=== PATIENT | female | born 1995 | race Caucasian/White ===

== ENCOUNTER 2016-08-15 16:43 | Emergency (ER) | payer MEDICAID, OTHER ==
[~2016-08-15] VITALS: Ht 149.9 cm; Wt 46.7 kg
[2016-08-15 17:26] VITALS: BP 88/72
--- NOTE | 2016-08-15 17:45 | NUR ---
PT PRESENTS TO ER W/C/O FEVER SINCE THIS. TEMPERATURE UPON ARRIVAL TO ER 100.4. PT IS 21 WEEKS ; DENIES N/V/D; SKIN IS PINK/WARM/DRY; AAOX4 WITH EVEN AND STEADY GAIT; LUNGS CLEAR BL; HR EVEN AND REGULAR; PT DENIES ANY FEVER, CP, SOB, OR COUGH AT THIS TIME; PATIENT STATES PAIN OF 0/10 AT THIS TIME; VSS; PATIENT POSITIONED FOR COMFORT; HOB ELEVATED; BEDRAILS UP X2; BED DOWN. ER MD MADE AWARE OF PT STATUS.
--- NOTE | 2016-08-15 18:12 | NUR ---
AAO, COOPERATIVE PATIENT TAKEN TO OB 5A FOR FURTHER EVAL VIA WHEEL CHAIR BY MICHELLE BOLES
[2016-08-15 18:56] VITALS: BP 99/54
--- NOTE | 2016-08-15 20:25 | NUR ---
Patient was brought back from L&D and taken to bed 04.
--- NOTE | 2016-08-15 20:53 | NUR ---
Dr. Flor evaluating patient at bedside.
[2016-08-15] MEDS ORDERED: NACL 0.9% 1,000 ML IV ONE ×3 (21:05→23:35)
[2016-08-15] MEDS ORDERED: ACETAMINOPHEN EXTRA STRENGTH 500 MG TAB PO ONE (21:05)
[2016-08-15] MEDS ORDERED: POTASSIUM CHLORIDE 10 MEQ TABER PO ONE (22:00)
[2016-08-16] MEDS ORDERED: PENICILLIN G BENZATHINE L-A 1.2 MU/2 ML SYR IM ONE (01:05)
--- NOTE | 2016-08-16 01:10 | NUR ---
ADMINISTER IM INJECTION ORDERED WITH NAEEM HERNANDEZ.
[2016-08-16 01:35] VITALS: BP 100/56
--- NOTE | 2016-08-16 01:35 | NUR ---
Patient discharged with v/s stable. Written and verbal after care instructions given and explained. Patient alert, oriented and verbalized understanding of instructions. Ambulatory with steady gait. All questions addressed prior to discharge. ID band removed. Patient advised to follow up with PMD. Rx of TYLENOL 500MG PO, ZOFRAN 4MG ODT PO given. Patient educated on indication of medication including possible reaction and side effects. Opportunity to ask questions provided and answered.
== END 2016-08-16 01:35 | disposition home or self-care (01) ==
LOC: MED 16:43 → EDSTATUS 18:16 → MLD 18:36 → UNDOADMOB 18:36 → EDSTATUS 20:22 → MED 08-16 01:35
DX: O26.892 Other specified pregnancy related conditions, second trimester (principal); J02.9 Acute pharyngitis, unspecified; R07.89 Other chest pain; Z90.89 Acquired absence of other organs; Z3A.20 20 weeks gestation of pregnancy
CPT/HCPCS: 36415; 59025; 76805; 80053; 81001; 81025; 83605; 85025; 87081; 87804; 96360; 96361; 96372; 99285; J0561; J7030; Q0092

== ENCOUNTER 2017-08-27 09:31 | Emergency (ER) | payer MEDICAID, OTHER ==
[~2017-08-27] VITALS: Ht 139.7 cm; Wt 49.0 kg
[2017-08-27 10:31] VITALS: BP 137/72
--- NOTE | 2017-08-27 10:36 | NUR ---
PATIENT TO LOBBY. NO AVAIL. BED AT THIS TIME. NO DISTRESS
--- NOTE | 2017-08-27 12:38 | NUR ---
PATIENT TAKEN TO CHAIR OUTSIDE TRIAGE. SEEN AND EXAMINED BY DR. FOSTER
[2017-08-27 12:46] VITALS: BP 93/57
== END 2017-08-27 12:46 | disposition home or self-care (01) ==
LOC: MED 09:31
DX: O26.891 Other specified pregnancy related conditions, first trimester (principal); L03.317 Cellulitis of buttock; Z3A.01 Less than 8 weeks gestation of pregnancy
CPT/HCPCS: 99283

== ENCOUNTER 2017-12-25 13:53 | Emergency (ER) | payer OTHER ==
[~2017-12-25] VITALS: Ht 149.9 cm; Wt 48.1 kg
[2017-12-25 13:55] VITALS: BP 104/59
--- NOTE | 2017-12-25 14:03 | NUR ---
PT AMBULATES TO BED 3 WITH STEADY GAIT
--- NOTE | 2017-12-25 14:20 | NUR ---
22F BIB SELF C/O PAINFUL URINATION FOR 1 WEEK. REPORTS SHE HAD AN EPISIOTOMY DURING HER LAST 1 YEAR AGO, THINKS THE AREA IS WHATS CAUSING HER THE PAIN WHEN SHE URINATES. PT IS 5 MONTHS WITH NO PREVIOUS CARE D/T "NOT SURE OF KEEPING IT". PT STS APPOINTED WITH [facility] TOMORROW TO DISCUSS OPTIONS. PT DENIES ANY ABDOMINAL PAIN, N/V/D, OR VAGINAL BLEEDING. PT IS AOX4 TO PERSON,PLACE,DATE, AND SITUATION. RR ARE EVEN AND UNLABORED. PT CHANGED INTO GOWN. AWAITING ER MD [place]. NAD. WILL CONTINUE TO MONITOR.
--- NOTE | 2017-12-25 14:20 | NUR ---
LMP 07/27/17. .
--- NOTE | 2017-12-25 14:31 | NUR ---
JABIER ESCOBAR BY BEDSIDE EXAMINING PT
--- NOTE | 2017-12-25 14:42 | NUR ---
JABIER ESCOBAR STS WILL ORDER ULTRASOUND. CANCELLED FHTs.
--- NOTE | 2017-12-25 15:21 | NUR ---
ultrasound by bedside
[2017-12-25 17:15] VITALS: BP 100/61
--- NOTE | 2017-12-25 17:15 | NUR ---
Patient discharged with v/s stable. Written and verbal after care instructions given and explained. Patient alert, oriented and verbalized understanding of instructions. Ambulatory with steady gait. All questions addressed prior to discharge. ID band removed. Patient advised to follow up with PMD. Rx of and Cephalexin given. Patient educated on indication of medication including possible reaction and side effects. Opportunity to ask questions provided and answered.
== END 2017-12-25 17:15 | disposition home or self-care (01) ==
LOC: MED 13:53
DX: O23.42 Unspecified infection of urinary tract in pregnancy, second trimester (principal); Z3A.24 24 weeks gestation of pregnancy
CPT/HCPCS: 76805; 81002; 81025; 99284; Q0092

== ENCOUNTER 2018-02-19 14:18 | Emergency (ER) | payer OTHER ==
[~2018-02-19] VITALS: Ht 149.9 cm; Wt 52.6 kg
--- NOTE | 2018-02-19 14:20 | NUR ---
Marya quinonez in [facility] - 02/19/18 at 1501 by TROY PT BIBA TO ER BED 06
--- NOTE | 2018-02-19 14:20 | NUR ---
PT AMBULATED TO ER BED 06
[2018-02-19 14:25] VITALS: BP 112/72
--- NOTE | 2018-02-19 14:35 | NUR ---
PT. CAME INTO THE ED DUE TO A L EYEBROW PIMPLE. PT. STATES " I WENT OT THE URGENT CARE BECAUSE THIS PIMPLE GOT REALLY BIG AND IT HURTS WHEN I TOUCH IT AND THEY TOLD ME TO COME HERE". PT. HAS 8/10 PAIN WHEN TOUCHING IT BUT NO PAIN WHEN LEFT ALONE. PT. IS AWAKE AND ALERT. NO N/V/D. PT. DENIES ANY FEVERS. ER MD NOTIFIED. WILL CONTINUE TO MONITOR.
[2018-02-19 14:55] VITALS: BP 112/72
--- NOTE | 2018-02-19 14:55 | NUR ---
Patient discharged with v/s stable. Written and verbal after care instructions given and explained. Patient verbalized understanding. Ambulatory with steady gait. All questions addressed prior to discharge. Advised to follow up with PMD.
== END 2018-02-19 14:55 | disposition home or self-care (01) ==
LOC: MED 14:18
DX: O26.892 Other specified pregnancy related conditions, second trimester (principal); L02.01 Cutaneous abscess of face; Z90.49 Acquired absence of other specified parts of digestive tract
CPT/HCPCS: 99281

== ENCOUNTER 2022-02-21 21:58 | Emergency (ER) | payer OTHER ==
[~2022-02-21] VITALS: Ht 149.9 cm; Wt 61.2 kg
[2022-02-21 22:15] VITALS: BP 102/71
[2022-02-21] MEDS ORDERED: DEXAMETHASONE 4 MG/ML VIAL PO ONE (22:55)
--- NOTE | 2022-02-21 23:05 | NUR ---
PT TAKEN TO BED 7
--- NOTE | 2022-02-21 23:10 | NUR ---
COVID-19, Strep and culture swabs collected and sent to lab.
--- NOTE | 2022-02-21 23:56 | NUR ---
Dr. Esposito examining patient.
[2022-02-22] MEDS ORDERED: LIDO100S PO (00:19)
[2022-02-22 00:26] VITALS: BP 110/78
--- NOTE | 2022-02-22 00:26 | NUR ---
Patient discharged with v/s stable. Written and verbal after care instructions given and explained. Patient alert, oriented and verbalized understanding of instructions. Ambulatory with steady gait. All questions addressed prior to discharge. ID band removed. Patient advised to follow up with PMD. Rx of LIDOCAINE HCL given. Patient educated on indication of medication including possible reaction and side effects. Opportunity to ask questions provided and answered.
== END 2022-02-22 00:26 | disposition home or self-care (01) ==
LOC: MED 21:58
DX: J02.9 Acute pharyngitis, unspecified (principal); Z20.822 Contact with and (suspected) exposure to COVID-19; Z90.49 Acquired absence of other specified parts of digestive tract; Z79.899 Other long term (current) drug therapy
CPT/HCPCS: 87081; 87426; 99283; J1100

== ENCOUNTER 2022-02-23 22:52 | Emergency (ER) | payer OTHER ==
[~2022-02-23] VITALS: Ht 152.4 cm; Wt 59.0 kg
[~2022-02-23 22:52] MED LIST: LIDO100S PO
[2022-02-23 23:03] VITALS: BP 125/72
[2022-02-24] MEDS ORDERED: LIDOCAINE MPF 1% 10 MG/ML VIAL INJ ONE (00:55)
[2022-02-24] MEDS ORDERED: BACITRACIN OINT 500 UNITS/GM PKT TP ONE (01:10)
[2022-02-24] MEDS ORDERED: NAPR-54 PO (01:26)
== END 2022-02-24 01:25 | disposition home or self-care (01) ==
LOC: MED 22:52
DX: L02.511 Cutaneous abscess of right hand (principal); F14.90 Cocaine use, unspecified, uncomplicated
CPT/HCPCS: 11730; 99284; J2001

== ENCOUNTER 2023-08-02 00:10 | Emergency (ER) | payer MEDICAID, OTHER ==
[~2023-08-02] VITALS: Ht 149.9 cm; Wt 65.8 kg
[~2023-08-02 00:10] MED LIST changes: +NAPR-54 PO
[2023-08-02 00:25] VITALS: BP 113/71; PULSE 93; RESP 18; TEMP 98.2; O2SAT 99
[2023-08-02 00:46] LABS: APPEARANCE,URINE SL CLOUDY (CLEAR); BILIRUBIN,URINE NEGATIVE (NEGATIVE); BLOOD, URINE TRACE-I (NEGATIVE); COLOR,URINE YELLOW (YELLOW); LEUKOCYTE ESTERASE ,URINE 1+ (NEGATIVE); NITRITE, URINE NEGATIVE (NEGATIVE); PROTEIN,URINE NEGATIVE (NEGATIVE); UGLUCOSE NEGATIVE (NEGATIVE)
[2023-08-02 00:52] LABS: BACTERIA,URINE 10-30 (MOD) /HPF (None Seen); MUCUS,URINE 1+ /LPF (None Seen); SQUAMOUS EPITHELIAL CELL,UR 0-3 (FEW) /LPF (0-3 (FEW))
[2023-08-02 01:17] LABS: BASOPHILS # (AUTO) 0.1 K/uL (0.00-0.22); BASOPHILS % (AUTO) 0.8 % (0.0-2.0); EOSINOPHILS # (AUTO) 0.3 K/uL (0-0.4); EOSINOPHILS % (AUTO) 3.2 % (0.0-4.0); HEMATOCRIT 35.8 % (36-48); HEMOGLOBIN 12.3 g/dL (12.0-16.0); LYMPHOCYTES # (AUTO) 2.4 K/uL (2.5-16.5); LYMPHOCYTES % (AUTO) 30.5 % (20.5-51.1); MEAN CORPUSCULAR HEMOGLOBIN 29 pg (27-31); MEAN CORPUSCULAR HGB CONC 34 g/dL (33-37); MEAN CORPUSCULAR VOLUME 84.8 fL (80-94); MONOCYTES # (AUTO) 0.8 K/uL (0.8-1.0); MONOCYTES % (AUTO) 9.6 % (1.7-9.3); NEUTROPHILS # (AUTO) 4.4 K/uL (1.8-7.7); NEUTROPHILS % (AUTO) 55.9 % (42.2-75.2); PLATELET COUNT (AUTO) 197 K/uL (140-450); RED BLOOD CELL COUNT(AUTO) 4.23 MIL/uL (4.20-5.40); RED CELL DISTRIBUTION WIDTH 13.7 % (11.6-13.7); WHITE BLOOD COUNT (AUTO) 7.9 K/uL (4.8-10.8)
[2023-08-02 01:24] LABS: ANION GAP 12.4 (8-16); CALCIUM 8.7 mg/dL (8.5-10.1); CARBON DIOXIDE 27.3 mmol/L (21-32); CREATININE 0.7 mg/dL (0.6-1.3); POTASSIUM 3.7 mmol/L (3.5-5.1)
[2023-08-02 01:30] LABS: ALBUMIN 3.4 g/dL (3.4-5.0); BILIRUBIN,DIRECT 0.1 mg/dL (0.0-0.3); TOTAL BILIRUBIN 0.4 mg/dL (0.0-1.0); TOTAL PROTEIN, SERUM 8.5 g/dL (6.4-8.2)
[2023-08-02 01:50] LABS: FLU A ANTIGEN negative (NEGATIVE); FLU B ANTIGEN NEGATIVE (NEGATIVE)
[2023-08-02] MEDS ORDERED: ONDA-188 PO (02:10)
[2023-08-02] MEDS ORDERED: ONDANSETRON 4 MG ODT ONE (02:13)
[2023-08-02] MEDS ORDERED: ONDANSETRON 4 MG ODT PO ONE (02:15)
[2023-08-02 02:17] VITALS: BP 113/71; PULSE 93; RESP 18; TEMP 98.2; O2SAT 99
== END 2023-08-02 02:17 | disposition home or self-care (01) ==
LOC: MED 00:10
DX: R11.2 Nausea with vomiting, unspecified (principal); Z20.822 Contact with and (suspected) exposure to COVID-19; Z79.899 Other long term (current) drug therapy; Z79.1 Long term (current) use of non-steroidal anti-inflammatories (NSAID)
CPT/HCPCS: 36415; 80048; 80076; 81001; 81025; 83690; 85025; 87086; 87426; 87804; 99283; Q0162

== ENCOUNTER 2023-09-25 00:35 | Emergency (ER) | payer MEDICAID ==
[~2023-09-25] VITALS: Ht 149.9 cm; Wt 66.7 kg
[~2023-09-25 00:35] MED LIST changes: +ONDA-188 PO
[2023-09-25 00:37] VITALS: BP 110/75; PULSE 90; RESP 18; TEMP 98; O2SAT 100
[2023-09-25 01:02] VITALS: BP 103/65; PULSE 97; RESP 16; O2SAT 100
[2023-09-25 01:37] LABS: APPEARANCE,URINE CLEAR (CLEAR); BILIRUBIN,URINE NEGATIVE (NEGATIVE); BLOOD, URINE NEGATIVE (NEGATIVE); COLOR,URINE YELLOW (YELLOW); LEUKOCYTE ESTERASE ,URINE TRACE (NEGATIVE); NITRITE, URINE NEGATIVE (NEGATIVE); PROTEIN,URINE NEGATIVE (NEGATIVE); UGLUCOSE NEGATIVE (NEGATIVE)
[2023-09-25 01:47] LABS: BASOPHILS # (AUTO) 0.1 K/uL (0.00-0.22); BASOPHILS % (AUTO) 0.6 % (0.0-2.0); EOSINOPHILS # (AUTO) 0.2 K/uL (0-0.4); EOSINOPHILS % (AUTO) 2.6 % (0.0-4.0); HEMATOCRIT 33.8 % (36-48); HEMOGLOBIN 11.6 g/dL (12.0-16.0); LYMPHOCYTES % (AUTO) 21.5 % (20.5-51.1); MEAN CORPUSCULAR HEMOGLOBIN 29 pg (27-31); MEAN CORPUSCULAR HGB CONC 34 g/dL (33-37); MEAN CORPUSCULAR VOLUME 84.7 fL (80-94); MONOCYTES # (AUTO) 0.9 K/uL (0.8-1.0); MONOCYTES % (AUTO) 9.5 % (1.7-9.3); NEUTROPHILS % (AUTO) 65.8 % (42.2-75.2); PLATELET COUNT (AUTO) 188 K/uL (140-450); RED BLOOD CELL COUNT(AUTO) 3.99 MIL/uL (4.20-5.40); RED CELL DISTRIBUTION WIDTH 13.7 % (11.6-13.7); WHITE BLOOD COUNT (AUTO) 9.2 K/uL (4.8-10.8)
[2023-09-25 01:52] LABS: ALBUMIN 3.5 g/dL (3.4-5.0); BILIRUBIN,DIRECT 0.1 mg/dL (0.0-0.3); TOTAL BILIRUBIN 0.3 mg/dL (0.0-1.0); TOTAL PROTEIN, SERUM 7.2 g/dL (6.4-8.2)
[2023-09-25 01:58] LABS: BACTERIA,URINE >30 (MANY) /HPF (None Seen); MUCUS,URINE 1+ /LPF (None Seen); SQUAMOUS EPITHELIAL CELL,UR 0-3 (FEW) /LPF (0-3 (FEW))
[2023-09-25 02:01] LABS: ANION GAP 9.2 (8-16); CALCIUM 8.6 mg/dL (8.5-10.1); CARBON DIOXIDE 28.2 mmol/L (21-32); CREATININE 0.8 mg/dL (0.6-1.3); POTASSIUM 3.4 mmol/L (3.5-5.1)
[2023-09-25] MEDS ORDERED: NITR100C7 PO (02:09)
== END 2023-09-25 02:10 | disposition home or self-care (01) ==
LOC: MED 00:35
DX: O23.41 Unspecified infection of urinary tract in pregnancy, first trimester (principal); N39.0 Urinary tract infection, site not specified; Z3A.01 Less than 8 weeks gestation of pregnancy
CPT/HCPCS: 36415; 76801; 80048; 80076; 81001; 81025; 85025; 86900; 86901; 87086; 99284; Q0092

== ENCOUNTER 2023-11-01 23:05 | Emergency (ER) | payer SELFPAY ==
[~2023-11-01] VITALS: Ht 149.9 cm; Wt 64.4 kg
[~2023-11-01 23:05] MED LIST changes: +NAPR-337 PO; -NAPR-54 PO; +NITR100C7 PO
[2023-11-01 23:10] VITALS: BP 101/67; PULSE 101; RESP 18; TEMP 97.8; O2SAT 99
[2023-11-02 00:20] VITALS: BP 101/67; PULSE 101; RESP 18; TEMP 97.8; O2SAT 99
== END 2023-11-02 00:20 | disposition home or self-care (01) ==
LOC: MED 23:05
DX: O9A.211 Injury, poisoning and certain other consequences of external causes complicating pregnancy, first trimester (principal); S90.122A Contusion of left lesser toe(s) without damage to nail, initial encounter; Z3A.13 13 weeks gestation of pregnancy; Z79.899 Other long term (current) drug therapy; W22.8XXA Striking against or struck by other objects, initial encounter; Y92.89 Other specified places as the place of occurrence of the external cause; Y93.89 Activity, other specified; Y99.8 Other external cause status
CPT/HCPCS: 73660; 99283

== ENCOUNTER 2024-02-19 00:03 | Observation (INO) | payer MEDICAID ==
[~2024-02-19] VITALS: Ht 149.9 cm; Wt 68.5 kg
[2024-02-19] MEDS ORDERED: PREN-537 PO (00:23)
[2024-02-19 00:35] VITALS: BP 103/63; PULSE 83; RESP 18; TEMP 98.5
== END 2024-02-19 11:00 | disposition home or self-care (01) ==
LOC: MLD 00:03
PROVIDERS: ADMIT Obstetrics & Gynecology; ATTEND Obstetrics & Gynecology
DX: O46.93 Antepartum hemorrhage, unspecified, third trimester (principal); Z3A.29 29 weeks gestation of pregnancy; Z79.899 Other long term (current) drug therapy
CPT/HCPCS: 76817; G0378; G0379; Q0092